=== PATIENT | female | born 1935 | race Caucasian/White ===

== ENCOUNTER 2019-08-27 10:44 | Outpatient (CLI) | payer MEDICARE, BC ==
--- NOTE | 2019-08-27 12:03 | RAD ---
EXAM: XR Lumbar Spine Min 4 View PROVIDED CLINICAL HISTORY: Lumbar spondylosis. Degenerative lumbar disc disease. Patient states low back pain which goes down le ft leg. COMPARISON: 05/16/2017 FINDINGS: Again noted are extensive postoperative changes of the lower lumbar spine with evidence of posterior fusion. Bipedicular screws and posterior rods transfix these levels. No hardware complication is seen. Laminectomy defects are again seen at this level. Dorsal column stimulator device is again seen overlying the lower thoracic spine with tip overlying the T8 vertebral body. Again noted is retrolisthesis of L2 on L3 unchanged from prior study. Osteophytes are seen involving the L1-2 and L2-3 levels with narrowing of the L2-3 intervertebral disc space similar to prior study. No acute fracture is seen. Vascular calcifications are seen in the abdominal aorta and iliac arteries. IMPRESSION: Overall stable postsurgical and degenerative changes of the lumbar spine. Persistent retrolisthesis o f L2 on L3 is present.
--- NOTE | 2019-08-27 13:43 | CT ---
CT OF THE LUMBAR SPINE WITHOUT CONTRAST: INDICATION: History of radiculopathy. COMPARISON: Lumbar spine radiograph dated 05/16/2017. FINDINGS: There is postsurgical change consistent with posterolateral instrumentation spanning L3 through S1 th at appears similar-appearing. No overt hardware complication is evident. The retrolisthesis of L2 o n L3 with vacuum-disk phenomenon at L2-3 and L1-2 is similar-appearing. The beam-scattered artifact at the spinal levels limits image detail. This is most severe at L5-S1, L4-5, L3-4, and to some exte nt at the L2-3 level. There is a broad-based disk-osteophyte complex at L2-3 that induces mild central canal narrowing and at least moderate bilateral neural foraminal narrowing. At L1-L2, there is no appreciable central canal or neural foraminal narrowing. At T12-L1, there is no appreciable osseous central canal or neural foraminal narrowing. Visualized aspects of the retroperitoneum demonstrate moderate calcification involving the abdominal aorta and bilateral parapelvic cysts. No free fluid or lymphadenopathy is evident. No acute fracture is identified. There is moderate degenerative change of both SI joints. There is a dorsal column stimulator that projects beyond the field of view and enters the epidural space at ap proximately T10-T11. IMPRESSION: 1. Extensive postoperative change of the lower lumbar spine. Some limitation of exam due to beam-sc attered artifact from instrumentation. 2. Mild central canal narrowing with moderate bilateral neural foraminal narrowing at L2-3. There i s prominent adjacent segment degeneration at L2-L3 3. Mild retrolisthesis of L2 on L3 is stable. 4. Intradiskal gas at L1-2 and L2-3 is likely related to some disk instability. POS: [facility]
== END 2019-08-27 10:45 | disposition home or self-care (01) ==
LOC: BICCT 10:44
PROVIDERS: ATTEND Anesthesiology Pain Medicine
DX: M47.816 Spondylosis without myelopathy or radiculopathy, lumbar region (principal); M43.16 Spondylolisthesis, lumbar region; M48.02 Spinal stenosis, cervical region; Z98.890 Other specified postprocedural states
CPT/HCPCS: 72110; 72131

== ENCOUNTER 2021-12-01 10:28 | Emergency (ER) | payer MEDICARE, OTHER ==
[2021-12-01 11:07] LABS: Bilirubin Negative (Negative); Blood, Urine Negative (Negative); Glucose, Urine (Dipstick) Negative (Negative); Ketone, Urine Negative (Negative); Leukocyte Negative (Negative); Nitrite Negative (Negative); Protein, Urine (Dipstick) Negative (Neg-Trace); Urobilinogen 0.2 mg/dL (Less than 2); pH, Urine 5.5 (5.0-9.0)
[2021-12-01 11:11] LABS: Clarity Hazy (Clear)
[2021-12-01 12:04] LABS: #Eosinphils 0.1 thou/uL (0.0-0.7); #Lymphocytes 1.1 thou/uL (1.20-3.40); #Monocytes 0.7 thou/uL (0.11-0.59); #Neutrophils 7.4 thou/uL (1.40-6.50); %Basophils 0.4 % (0.0-1.0); %Eosinophils 1.3 % (0.0-10.0); %Monocytes 7.2 % (0.0-10.0); %Neutrophils 79.2 % (42.0-75.0); Hemoglobin 11.5 g/dL (12.0-16.0); Mean Corpuscular HGB CONC 30.7 g/dL (32.0-36.0); Mean Corpuscular Hemoglobin 24.7 pg (27.0-31.0); Mean Corpuscular Volume 80.4 fL (78.0-98.0); Mean Platelet Volume 8.3 fL (7.4-10.4); Platelet Count 304 thou/uL (130-400); RBC Distribution Width 15.9 % (11.5-14.5); Red Blood Cell (RBC) Count 4.65 mill/uL (4.20-5.40); White Blood Cell (WBC) Count 9.3 thou/uL (4.8-10.8)
[2021-12-01 12:10] LABS: ALT (SGPT) 15 U/L (8-55); AST (SGOT) 21 U/L (5-34); Albumin 3.8 g/dL (3.4-4.8); Alkaline Phosphatase 132 U/L (40-110); Anion Gap 14 mmol/L (10-20); BUN (Urea Nitrogen) 18 mg/dL (9.8-20.1); Bilirubin, Total 0.4 mg/dL (0.2-1.2); Calc. Creatinine Clearance 0 mL/min (70-130); Carbon Dioxide 25 mmol/L (23-31); Chloride 106 mmol/L (98-107); Estimated GFR 57; Globulin 3.3 g/dL (2.4-3.5); Glucose 88 mg/dL (83-110); Potassium 4.5 mmol/L (3.5-5.1); Protein, Total 7.1 g/dL (5.8-8.1); Sodium 140 mmol/L (136-145)
== END 2021-12-01 15:07 | disposition home or self-care (01) ==
LOC: ERS 10:28
DX: S81.802A Unspecified open wound, left lower leg, initial encounter (principal); L03.116 Cellulitis of left lower limb; I10 Essential (primary) hypertension; E16.2 Hypoglycemia, unspecified; H40.9 Unspecified glaucoma; W22.03XA Walked into furniture, initial encounter; Z79.899 Other long term (current) drug therapy
CPT/HCPCS: 36415; 80053; 81003; 85025; 85652; 86140